=== PATIENT | male | born 1965 | race Two or more races ===

== ENCOUNTER 2016-08-22 10:57 | Emergency (ER) | payer MEDICAID ==
[~2016-08-22] VITALS: Ht 180.3 cm; Wt 77.1 kg
[2016-08-22 11:12] VITALS: BP 115/82
[2016-08-22] MEDS ORDERED: MORPHINE SULFATE 4 MG/ML SYRG IM ONE (11:45)
[2016-08-22] MEDS ORDERED: ONDANSETRON HCL 4 MG/2 ML VIAL IM ONE (11:45)
== END 2016-08-22 13:05 | disposition home or self-care (01) ==
LOC: ER 10:57
DX: G89.29 Other chronic pain (principal); M54.5 Low back pain; Z88.6 Allergy status to analgesic agent; Z88.8 Allergy status to other drugs, medicaments and biological substances
CPT/HCPCS: 72110; 96372; 99284; J2270; J2405